=== PATIENT | female | born 1990 | race Caucasian/White ===

== ENCOUNTER → 2023-11-09 | Outpatient (CLI) | payer OTHER ==
[~2023-11-09] MED LIST: AMOX875T2 PO; IBUP-1022 PO; LEXA1TAB2 PO
== END ==
LOC: M RAD 06:32
PROVIDERS: ATTEND Surgery
DX: R10.811 Right upper quadrant abdominal tenderness (principal)

== ENCOUNTER 2023-12-25 11:48 | Day surgery (SDC) | payer OTHER ==
[~2023-12-25] VITALS: Ht 175.3 cm; Wt 96.8 kg
[~2023-12-25 11:48] MED LIST changes: +ACETAMINOPHEN 1000MG 100ML IV BAG As Ordered ONE; +GREENS PO; +LEXA1TAB PO; +LIDOCAINE 2% 100MG/5ML SDV (FOR ANES.) As Ordered ONE; +MAGN250T7 PO; +MIDAZOLAM INJ 2MG/2ML VIAL As Ordered ONE; +OMEG10002 PO; +ONDANSETRON 4MG 2ML VIAL As Ordered ONE; +ROCURONIUM BROMIDE 50MG/5ML VIAL As Ordered ONE; +VITA100093 PO; +fentaNYL 100 MCG/2 ML INJECTION As Ordered ONE; +propofoL 200 MG/20 ML VIAL As Ordered ONE
[2023-12-25] MEDS: LR 1,000 ML IV SCH (12:50)
[2023-12-25] MEDS ORDERED: SUGAMMADEX SODIUM 500 MG/5 ML VIAL (BRIDION) As Ordered ONE (15:01)
[2023-12-25] MEDS ORDERED: KETOROLAC 60MG 2ML VIAL As Ordered ONE (15:06)
[2023-12-25] MEDS: HEPARIN SOD (PORCINE) 5000UNITS/ML 1ML VIAL/SYRINGE SQ ONE (15:14)
[2023-12-25] MEDS: ceFAZolin SOD 2 GM in IV 1 EA IV ONE (15:14)
[2023-12-25] MEDS ORDERED: METOCLOPRAMIDE INJ 10MG/2ML VIAL As Ordered ONE (16:12)
[2023-12-25] MEDS ORDERED: oxyCODONE 5MG TAB PO PRN (16:45)
[2023-12-25] MEDS ORDERED: LR 1,000 ML IV SCH (16:45)
[2023-12-25] MEDS ORDERED: METOCLOPRAMIDE INJ 10MG/2ML VIAL IV PRN (16:45)
[2023-12-25] MEDS ORDERED: diphenhydrAMINE 50MG/ML VIAL IV PRN (16:45)
[2023-12-25] MEDS ORDERED: fentaNYL 100 MCG/2 ML INJECTION IV PRN (16:45)
[2023-12-25] MEDS ORDERED: MEPERIDINE 25 MG/ML 1ML VIAL IV PRN (16:45)
[2023-12-25] MEDS: ONDANSETRON 4MG 2ML VIAL IV PRN (16:57)
[2023-12-25] MEDS: HYDROMORPHONE HCL 0.5 MG/ 0.5 ML SYRINGE IV PRN (16:58)
[2023-12-25 17:55] VITALS: BP 121/61; TEMP 97.4; O2SAT 98
== END 2023-12-25 18:01 | disposition home or self-care (01) ==
LOC: M SDC 11:48
PROVIDERS: ATTEND Surgery
DX: K36 Other appendicitis (principal); Z79.899 Other long term (current) drug therapy; Z88.8 Allergy status to other drugs, medicaments and biological substances; Z91.018 Allergy to other foods; Z91.040 Latex allergy status
CPT/HCPCS: 44970; 81025; 88304; J0131; J0665; J0690; J1100; J1170; J1885; J2405; J2765; J3010

== ENCOUNTER → 2024-02-12 | Outpatient (CLI) | payer OTHER ==
[~2024-02-12] MED LIST changes: -ACETAMINOPHEN 1000MG 100ML IV BAG As Ordered ONE; -LIDOCAINE 2% 100MG/5ML SDV (FOR ANES.) As Ordered ONE; -MIDAZOLAM INJ 2MG/2ML VIAL As Ordered ONE; -ONDANSETRON 4MG 2ML VIAL As Ordered ONE; -ROCURONIUM BROMIDE 50MG/5ML VIAL As Ordered ONE; -fentaNYL 100 MCG/2 ML INJECTION As Ordered ONE; -propofoL 200 MG/20 ML VIAL As Ordered ONE
== END ==
LOC: M RAD 13:20
PROVIDERS: ATTEND Psychiatry & Neurology Neurology
DX: R91.1 Solitary pulmonary nodule (principal)